=== PATIENT | female | born 1995 | race Caucasian/White ===

== ENCOUNTER 2017-11-23 12:17 | Emergency (ER) | payer OTHER ==
[~2017-11-23] VITALS: Ht 172.7 cm; Wt 75.1 kg
[2017-11-23 12:34] VITALS: BP 120/66
[2017-11-23 12:35] VITALS: BP 120/66
--- NOTE | 2017-11-23 12:35 | NUR ---
21Y/F BIB SELF C/O VAGINAL BLEEDING. PT STATES" SHE HAS VAG BLEEDING WITH LARGE TISSUES PASSED X LAST NIGHT. NO PAIN OR BURNING WITH URINATION. NO AB PAIN AT THIS TIME;; LMP 09/2017; NO DYSURIA, NO RECENT INJURY. VSS; PATIENT POSITIONED FOR COMFORT; HOB ELEVATED; BEDRAILS UP X1; BED DOWN. ER MD MADE AWARE OF PT STATUS. HX---DENIES RX---NONE
--- NOTE | 2017-11-23 12:39 | NUR ---
Patient being evaluated by physician at bedside.
[2017-11-23 14:02] LABS: ANION GAP 12.2 (8-16); CARBON DIOXIDE 25.6 mmol/L (21-32); CREATININE 0.6 mg/dL (0.6-1.3); POTASSIUM 3.8 mmol/L (3.5-5.1)
[2017-11-23 14:08] LABS: APPEARANCE,URINE CLEAR (CLEAR); BILIRUBIN,URINE NEGATIVE (NEGATIVE); BLOOD, URINE NEGATIVE (NEGATIVE); COLOR,URINE YELLOW (YELLOW); LEUKOCYTE ESTERASE ,URINE 1+ (NEGATIVE); NITRITE, URINE NEGATIVE (NEGATIVE); UGLUCOSE NEGATIVE (NEGATIVE)
--- NOTE | 2017-11-23 14:22 | NUR ---
PATIENT ELOPED FROM FACILITY. DISCHARGE INSTRUCTIONS NOT GIVEN TO PATIENT. DR. ARGUETA NOTIFIED.
--- NOTE | 2017-11-23 14:22 | NUR ---
PT ELOPED AT THIS TIME
[2017-11-23 14:50] LABS: RBC,URINE 0-5 (RARE) /HPF (0-5)
== END 2017-11-23 14:22 | disposition left against medical advice (07) ==
LOC: MED 12:17
DX: O46.91 Antepartum hemorrhage, unspecified, first trimester (principal); Z3A.10 10 weeks gestation of pregnancy
CPT/HCPCS: 36415; 76801; 80048; 81001; 81025; 84702; 86900; 86901; 87086; 99285; Q0092